=== PATIENT | female | born 1975 | race Caucasian/White ===

== ENCOUNTER 2017-04-27 15:40 | Inpatient (IN) | payer MEDICAID, OTHER ==
[2017-04-27] MEDS ORDERED: ZOFRAN ONE (16:19)
[2017-04-27] MEDS ORDERED: NACL 0.9% 1000 ML 1,000 ML ONE (16:19)
[2017-04-27] MEDS ORDERED: REGLAN ONE (16:59)
[2017-04-27] MEDS ORDERED: NACL 0.9% 1000 ML 1,000 ML IV ONE (17:04)
[2017-04-27] MEDS ORDERED: ZOFRAN IV ONE (17:04)
[2017-04-27] MEDS ORDERED: REGLAN IV ONE (17:04)
[2017-04-27] MEDS ORDERED: ANTIVERT PO ONE (17:30)
--- NOTE | 2017-04-27 17:37 | Emergency Department Report ---
HPI - General Chief Complaint: Nausea/Vomiting/Diarrhea Time Seen by Provider: 04/27/17 17:19 - HPI HPI: Room 26 The patient is a 41-year-old female presented with a chief complaint syncope. The patient has a history of multiple sclerosis and states when she awakens 05: 15 she had intermittent dizziness and nausea without vomiting. Patient did not have a headache. Patient states her dizziness has been intermittent up until appointment 14:301 her symptoms worsen while driving. The patient called her boss who in turn called EMS. Coworkers state when a found the patient in her car she was unconscious and slumped over. When they opened the car door the patient fell out of the car. When the patient initially awake and she resumed nausea and vomiting. Coworker states the patient's entire body seemed tense but she was talking throughout the episode. Patient denies any previous episodes of the same. The patient now complains of feeling nauseous and dizzy Location: [See above] Duration: Intermittent since 05:15 Quality: Dizziness, nausea Severity: Moderate Modifying factors: [see above] Context: [see above] Mode of transportation: [not driving] ED Past Medical Hx - Past Medical History Additional medical history: Multiple sclerosis - Surgical History Hx Cholecystectomy: Yes Additional Surgical History: tonsillectomy, tubal ligation - Family History Family history: no significant - Social History Smoking Status: Never Smoker Substance Use Type: None - Medications Home Medications: Home Medications Medication Instructions Recorded Confirmed Last Taken Type medroxyPROGESTERone ACETATE 05/29/13 05/29/13 05/15/13 History [Depo-Provera (Contraception)] ED Review of Systems ROS: Stated complaint: N/V Other details as noted in HPI Comment: All other systems reviewed and negative Constitutional: denies: chills, fever ENT: denies: ear pain, throat pain Respiratory: denies: cough, shortness of breath, wheezing Cardiovascular: denies: chest pain, palpitations Endocrine: no symptoms reported Gastrointestinal: nausea, vomiting Genitourinary: denies: urgency, dysuria, discharge Musculoskeletal: denies: back pain, joint swelling, arthralgia Skin: denies: rash, lesions Neurological: other (dizziness). denies: headache Psychiatric: denies: anxiety, depression Hematological/Lymphatic: denies: easy bleeding, easy bruising Physical Exam - Physical Exam Vital Signs: Vital Signs 04/27/17 04/27/17 04/27/17 15:55 16:37 17:00 Temperature 97.5 F L Pulse Rate 78 71 87 Respiratory 18 Rate Blood Pressure 117/69 119/69 O2 Sat by Pulse 100 100 98 Oximetry 04/27/17 17:02 Temperature Pulse Rate Respiratory 18 Rate Blood Pressure O2 Sat by Pulse 100 Oximetry Physical Exam: GENERAL: The patient is well-developed well-nourished female lying on stretcher appearing to be in moderate discomfort. [] HEENT: Normocephalic. Atraumatic. Extraocular motions are intact. Patient has moist mucous membranes. No nystagmus NECK: Supple. Trachea midline CHEST/LUNGS: Clear to auscultation. There is no respiratory distress noted. HEART/CARDIOVASCULAR: Regular. There is no tachycardia. There is no gallop rub or murmur. ABDOMEN: Abdomen is soft, nontender. Patient has normal bowel sounds. There is no abdominal distention. SKIN: There is no rash. There is no edema. There is no diaphoresis. NEURO: The patient is awake, alert, and oriented. The patient is cooperative. The patient has no focal neurologic deficits. The patient has normal speech. Cranial nerves II through XII grossly intact, no drift. Moves all extremities well MUSCULOSKELETAL: There is no evidence of acute injury. ED Course Vital Signs 04/27/17 04/27/17 04/27/17 15:55 16:37 17:00 Temperature 97.5 F L Pulse Rate 78 71 87 Respiratory 18 Rate Blood Pressure 117/69 119/69 O2 Sat by Pulse 100 100 98 Oximetry 04/27/17 17:02 Temperature Pulse Rate Respiratory 18 Rate Blood Pressure O2 Sat by Pulse 100 Oximetry - Consultations Consultation #1: 04/27/17 18:26 [facility] called 04/27/17 18:[address] Claudine Yu to admit the patient at [facility] ED Medical Decision Making - Lab Data Result diagrams: 04/27/17 16:03 04/27/17 16:03 Laboratory Tests 04/27/17 04/27/17 04/27/17 16:03 16:03 17:30 WBC 11.0 RBC 4.51 Hgb 15.1 H Hct 43.7 H MCV 97 MCH 34 H MCHC 35 H RDW 12.6 L Plt Count 180 Lymph % (Auto) 23.0 [place] % (Auto) 4.6 Eos % (Auto) 5.4 H Baso % (Auto) 0.8 Lymph # 2.5 [place] # 0.5 Eos # 0.6 H Baso # 0.1 Seg Neutrophils % 66.2 Seg Neutrophils # 7.3 Sodium 142 Potassium 3.2 L Chloride 100.7 Carbon Dioxide 18 L Anion Gap 27 BUN 10 Creatinine 0.7 Estimated GFR > 60 BUN/Creatinine Ratio 14 Glucose 165 H Calcium 9.3 Total Creatine Kinase CK-MB (CK-2) CK-MB (CK-2) Rel Index Troponin T HCG, Qual Urine Color Yellow Urine Turbidity Clear Urine pH 8.0 H Ur Specific [place] 1.011 Urine Protein <15 mg/dl Urine Glucose (UA) Neg Urine Ketones 20 Urine Blood Neg Urine Nitrite Neg Urine Bilirubin Neg Urine Urobilinogen < 2.0 Ur Leukocyte Esterase Neg Urine WBC (Auto) 4.0 Urine RBC (Auto) < 1.0 04/27/17 04/27/17 Unknown Unknown WBC RBC Hgb Hct MCV MCH MCHC RDW Plt Count Lymph % (Auto) [place] % (Auto) Eos % (Auto) Baso % (Auto) Lymph # [place] # Eos # Baso # Seg Neutrophils % Seg Neutrophils # Sodium Potassium Chloride Carbon Dioxide Anion Gap BUN Creatinine Estimated GFR BUN/Creatinine Ratio Glucose Calcium Total Creatine Kinase 75 CK-MB (CK-2) 1.7 CK-MB (CK-2) Rel Index 2.2 Troponin T < 0.010 HCG, Qual Negative Urine Color Urine Turbidity Urine pH Ur Specific [place] Urine Protein Urine Glucose (UA) Urine Ketones Urine Blood Urine Nitrite Urine Bilirubin Urine Urobilinogen Ur Leukocyte Esterase Urine WBC (Auto) Urine RBC (Auto) - EKG Data -: EKG Interpreted by De EKG shows normal: sinus rhythm Rate: normal - EKG Data When compared to previous EKG there are: previous EKG unavailable Interpretation: other (no ischemic changes seen) - Radiology Data Radiology results: report reviewed (CT head), image reviewed (CT head) FINAL REPORT EXAM: CT HEAD/BRAIN WO CON HISTORY: syncope, dizziness, MS TECHNIQUE: CT examination of the head without IV contrast PRIORS: None. FINDINGS: No acute air-fluid level visualized in the included air-filled sinuses. Bone windows demonstrate no acute fracture. The brain is without mass, mass effect, hemorrhage, or acute infarct. There is no extra-axial intracranial bleed, brain bleed, or midline shift. The ventricles and sulci are age-appropriate. IMPRESSION: No acute CVA, intracranial bleed, or brain mass Transcribed By: BAL Dictated By: HANDY DRIVER MD Electronically Authenticated By: HANDY DRIVER MD Signed Date/Time: 04/27/17 1420 - Differential Diagnosis syncope, multiple sclerosis, ACS, ICH, cerebellar lesion Critical care attestation.: If time is entered above; I have spent that time in minutes in the direct care of this critically ill patient, excluding procedure time. ED Disposition Clinical Impression: Syncope Disposition: DC-09 OP ADMIT IP TO THIS HOSP Is pt being admited?: Yes Does the pt Need Aspirin: No Condition: Fair Instructions: Syncope (ED) Referrals: PRIMARY CARE, [Primary Care Provider] - 3-5 Days Time of Disposition: 18:36 (hospitalist paged)
[2017-04-27 17:44] LABS: Basophils % (Auto) 0.8 % (0.0-1.8); Eosinophils % (Auto) 5.4 % (0.0-4.3); Hematocrit 43.7 % (30.3-42.9); Hemoglobin 15.1 gm/dl (10.1-14.3); Mean Corpuscular HGB Conc 35 % (30-34); Mean Corpuscular Hemoglobin 34 pg (28-32); Mean Corpuscular Volume 97 fl (79-97); Platelet Count 180 K/mm3 (140-440); Red Blood Count 4.51 M/mm3 (3.65-5.03); Red Cell Distribution Width 12.6 % (13.2-15.2)
[2017-04-27] MEDS ORDERED: PHENERGAN PR ONE (17:49)
[2017-04-27 17:58] LABS: Bilirubin,Urine NEG (Negative); Blood,Urine NEG (Negative); Ketones,Urine 20 mg/dL (Negative); Leukocyte Esterase,Urine NEG (Negative); Nitrite,Urine NEG (Negative); Protein,Urine <15 mg/dL mg/dL (Negative); RBC,Urine < 1.0 /HPF (0.0-6.0); Urobilinogen,Urine < 2.0 mg/dL (<2.0)
[2017-04-27 18:00] LABS: Anion Gap 27 mmol/L; BUN/Creatinine Ratio 14; Blood Urea Nitrogen 10 mg/dL (7-17); Calcium 9.3 mg/dL (8.4-10.2); Carbon Dioxide 18 mmol/L (22-30); Chloride 100.7 mmol/L (98-107); Glucose 165 mg/dL (65-100); Potassium 3.2 mmol/L (3.6-5.0); Sodium 142 mmol/L (137-145)
[2017-04-27 18:07] LABS: Creatine Kinase 75 units/L (30-135); Creatine Kinase MB 1.7 ng/mL (0.0-4.0)
--- NOTE | 2017-04-27 18:22 | Cat Scan Report ---
FINAL REPORT EXAM: CT HEAD/BRAIN WO CON HISTORY: syncope, dizziness, MS TECHNIQUE: CT examination of the head without IV contrast PRIORS: None. FINDINGS: No acute air-fluid level visualized in the included air-filled sinuses. Bone windows demonstrate no acute fracture. The brain is without mass, mass effect, hemorrhage, or acute infarct. There is no extra-axial intracranial bleed, brain bleed, or midline shift. The ventricles and sulci are age-appropriate. IMPRESSION: No acute CVA, intracranial bleed, or brain mass
--- NOTE | 2017-04-27 18:45 | History and Physical Report ---
History of Present Illness Chief complaint: I just passed out History of present illness: 42 YO Female with MS presents to ED for evaluation. Pt states that she has experienced intermittent nausea and dizziness over the past 3 days. Pt states that symptoms restarted at 0515 hrs upon waking. PT syates that on her drive to work that the symptoms got progressively worse and upon arrival at her job she was feeling even worse and subsequently called her boss. Pt boss subsequently called EMS. Prior to EMS arrival, patient was found in her car unconscious with her head on the steering wheel of her car and when the door was opened the patient fell out of the car but was caught by a coworker before contact was made with the ground. Upon EMS arrival patient was found to be lethargic, with loss of bladder continence. Pt coworker, who is at bedside during exam and interview, states that patient's whole body was shaking, and patient was confused. Pt denies fever, chills, CP, Palpitations, trauma, falls, vertigo, seizure, leg swelling, calf pain, prolonged travel/immobility, individual/ family history of DVT/PE, recent ill contacts, vision changes, or headaches. As per ED, patient had been approved for admission by [place] Past History Past Medical History: other (MS) Past Surgical History: cholecystectomy, tonsillectomy, Other (Tubal ligation) Social history: , lives with family. denies: smoking, alcohol abuse, prescription drug abuse Family history: no significant family history (reviewed) Medications and Allergies Allergies Allergy/AdvReac Type Severity Reaction Status Date / Time latex Allergy Hives Verified 06/06/13 11:41 Home Medications Medication Instructions Recorded Confirmed Last Taken Type No Known Home Medications [No 04/27/17 04/27/17 Unknown History Reported Home Medications] Review of Systems Constitutional: no weight loss, no weight gain, no fever, no chills Ears, nose, mouth and throat: no ear pain, no ear discharge, no tinnitis, no decreased hearing, no nose pain, no nasal congestion, no nasal discharge Breasts: no change in shape, no swelling, no mass Cardiovascular: syncope, no chest pain, no orthopnea, no palpitations, no rapid/ irregular heart beat, no edema, no lightheadedness, no shortness of breath Respiratory: no cough, no cough with sputum, no excessive sputum, no hemoptysis , no shortness of breath Gastrointestinal: nausea, no abdominal pain, no vomiting, no diarrhea, no constipation, no change in bowel habits, no hematemesis, no coffee ground emesis , no melena, no hematochezia, no loss of appetite Genitourinary Female: no pelvic pain, no flank pain, no menorrhagia, no dysuria , no urinary frequency, no urgency Rectal: no pain, no incontinence, no bleeding Musculoskeletal: no neck stiffness, no arm numbness/tingling, no low back pain, no shooting leg pain, no leg numbness/tingling Integumentary: no rash, no pruritis, no redness, no sores, no wounds, no jaundice, no boils Neurological: no head injury, no transient paralysis, no paralysis, no weakness , no parathesias, no numbness, no tingling Psychiatric: no anxiety, no memory loss, no change in sleep habits, no sleep disturbances, no insomnia, no hypersomnia, no change in appetite Endocrine: no cold intolerance, no heat intolerance, no polyphagia, no excessive thirst, no polydipsia, no polyuria Hematologic/Lymphatic: no easy bruising, no easy bleeding Allergic/Immunologic: no urticaria, no allergic rhinitis, no wheezing Exam - Constitutional Vitals: Temp Pulse Resp BP Pulse Ox 97.5 F L 83 18 115/66 98 04/27/17 15:55 04/27/17 18:01 04/27/17 18:01 04/27/17 18:01 04/27/17 18:01 General appearance: Present: mild distress - EENT Eyes: Present: PERRL ENT: hearing intact, clear oral mucosa - Neck Neck: Present: supple, normal ROM - Respiratory Respiratory effort: normal Respiratory: bilateral: CTA - Cardiovascular Heart Sounds: Present: S1 & S2. Absent: rub, click - Extremities Extremities: pulses symmetrical, No edema Peripheral Pulses: within normal limits - Abdominal General gastrointestinal: Present: soft, non-tender, non-distended, normal bowel sounds Female genitourinary: Present: normal - Integumentary Integumentary: Present: clear, warm, dry - Musculoskeletal Musculoskeletal: generalized weakness - Psychiatric Psychiatric: appropriate mood/affect, intact judgment & insight - Neurologic Neurologic: CNII-XII intact, moves all extremities, other (lethargic on exam) Results - Labs CBC & Chem 7: 04/27/17 16:03 04/27/17 16:03 Labs: Abnormal lab results 04/27/17 04/27/17 04/27/17 Range/Units 16:03 16:03 17:30 Hgb 15.1 H (10.1-14.3) gm/dl Hct 43.7 H (30.3-42.9) % MCH 34 H (28-32) pg MCHC 35 H (30-34) % RDW 12.6 L (13.2-15.2) % Eos % (Auto) 5.4 H (0.0-4.3) % Eos # 0.6 H (0.0-0.4) K/mm3 Potassium 3.2 L (3.6-5.0) mmol/L Carbon Dioxide 18 L (22-30) mmol/L Glucose 165 H (65-100) mg/dL Urine pH 8.0 H (5.0-7.0) Assessment and Plan - Patient Problems (1) Unconscious state Current Visit: Yes Status: Acute Plan to address problem: CT Head, neuro checks, [place] [facility] test-negative for vertigo, IVF resuscitation, empiric meclizine, and empiric keppra, (2) Multiple sclerosis Current Visit: Yes Status: Acute Plan to address problem: Supportive care, outpatient neurology F/U. Pt states that she is not taking medication at this time as per her neurologist because she does not have symptoms. Will consider MRI in AM if no improvement in symptoms. (3) Seizure disorder Current Visit: Yes Status: Suspected Plan to address problem: Suspected New Onset Seizure: Empric Keppra, EEG, Neuro checks, monitor for recurrent seizure activity, supportive care, CT head, and will consider MRI Head /Spine depending on symptoms, serial physical exam. (4) DVT prophylaxis Current Visit: Yes Status: Acute Plan to address problem: SCD to BLE while in bed,
[2017-04-27] MEDS ORDERED: PROVENTIL IH PRN (19:08)
[2017-04-27] MEDS ORDERED: ZOFRAN IV PRN (19:08)
[2017-04-27] MEDS ORDERED: TYLENOL PO PRN (19:08)
[2017-04-28] MEDS: KEPPRA PO SCH ×3 (11:36→23:25)
[2017-04-28] MEDS ORDERED: ATIVAN IV PRN (12:32)
[2017-04-28 13:56] LABS: BUN/Creatinine Ratio 16; Blood Urea Nitrogen 11 mg/dL (7-17); Carbon Dioxide 25 mmol/L (22-30); Chloride 103.4 mmol/L (98-107); Glucose 89 mg/dL (65-100); Potassium 3.6 mmol/L (3.6-5.0); Sodium 142 mmol/L (137-145)
[2017-04-28 13:58] LABS: Anion Gap 17 mmol/L
[2017-04-28] MEDS ORDERED: K-DUR PO ONE ×2 (14:00→23:00)
--- NOTE | 2017-04-28 16:18 | Progress Note ---
Assessment and Plan / Syncope vs seizure Suspected New Onset Seizure cont Michael Kevingalileo for, ordered EEG, MRI brain CT head had no acute finding cont Neuro checks, monitor for recurrent seizure activity, supportive care, if no further recurrent episode of seizure d/c tomorrow with out pt follow up if MRI and EEG normal Consulted neurology for further recommendation Discussed with derek, call them with any condition change ([phone]) / h/o Multiple sclerosis Pt states that she is not taking medication at this time as per her neurologist because she does not have symptoms. Supportive care, outpatient neurology F/U. / DVT prophylaxis SCD to b/l LE Brief History: 42 YO Female with h/o MS presents to ED after she was found unconscious in her car. Pt states that she has experienced intermittent nausea and dizziness over the past 3 days. PT states that on her drive to work the symptoms got progressively worse and before arrival at her job she was feeling even worse and subsequently called her boss. Pt boss called EMS. Prior to EMS arrival, patient was found in her car unconscious with her head on the steering wheel of her car and when the door was opened the patient fell out of the car but was caught by a coworker before she fell on the ground. Upon EMS arrival patient was found to be lethargic, with loss of bladder and bowel incontinence. Subjective Date of service: 04/28/17 Interval history: pt seen and examined no further seizure episode since admission tolerating diet, denies any focal deficit discussed with derek and they approved her stay Objective - Constitutional Vitals: Vital Signs - 12hr 04/28/17 04/28/17 04/28/17 07:11 12:36 15:43 Temperature 99.4 F 97.4 F L 99.2 F Pulse Rate 75 72 Respiratory 16 16 16 Rate Blood Pressure 105/58 126/76 111/67 O2 Sat by Pulse 96 96 Oximetry General appearance: Present: no acute distress, well-nourished - EENT Eyes: PERRL, EOM intact ENT: hearing intact, clear oral mucosa Ears: bilateral: normal - Neck Neck: supple, normal ROM - Respiratory Respiratory effort: normal Respiratory: bilateral: CTA - Cardiovascular Rhythm: regular Heart Sounds: Present: S1 & S2. Absent: gallop, rub Extremities: pulses intact, No edema, normal color, Full ROM - Gastrointestinal General gastrointestinal: Present: soft, non-tender, non-distended, normal bowel sounds - Integumentary Integumentary: clear, warm, dry - Musculoskeletal Musculoskeletal: 1, strength equal bilaterally - Neurologic Neurologic: moves all extremities - Psychiatric Psychiatric: memory intact, appropriate mood/affect, intact judgment & insight - Labs CBC & Chem 7: 04/27/17 16:03 04/28/17 12:16 - Imaging and cardiology CT Scan - head: report reviewed
[2017-04-28] MEDS: LOVENOX SUB-Q SCH (23:16)
--- NOTE | 2017-04-29 07:55 | Discharge Summary ---
Providers - Providers Date of Admission: 04/27/17 19:08 Attending physician: SUKUMAR BARRAGAN MD 04/28/17 10:13 Consult to Physician [CONS] Routine Consulting Provider: JONNATHAN MAE Reason For Exam: seizure Place consult to:: neurology Notified:: Phone number called:: [phone] Was contact made?: Yes If yes, spoke with:: Time called:: 16:50 04/28/17 13:18 Physical Therapy Evaluation and Treat [CONS] Routine Comment: Reason For Exam: d/c clearance 04/28/17 16:23 Physical Therapy Evaluation and Treat [CONS] Routine Comment: Reason For Exam: d/c clearance Primary care physician: [facility] DIRECT[facility] Hospitalization Condition: Fair Hospital course: / Syncope vs seizure Suspected New Onset Seizure cont Empric Keppra for, ordered EEG, MRI brain CT head had no acute finding cont Neuro checks, monitor for recurrent seizure activity, supportive care, if no further recurrent episode of seizure d/c tomorrow with out pt follow up if MRI and EEG normal Consulted neurology for further recommendation Discussed with derek, call them with any condition change ([phone]) / h/o Multiple sclerosis Pt states that she is not taking medication at this time as per her neurologist because she does not have symptoms. Supportive care, outpatient neurology F/U. / DVT prophylaxis SCD to b/l LE Brief History: 42 YO Female with h/o MS presents to ED after she was found unconscious in her car. Pt states that she has experienced intermittent nausea and dizziness over the past 3 days. PT states that on her drive to work the symptoms got progressively worse and before arrival at her job she was feeling even worse and subsequently called her boss. Pt boss called EMS. Prior to EMS arrival, patient was found in her car unconscious with her head on the steering wheel of her car and when the door was opened the patient fell out of the car but was caught by a coworker before she fell on the ground. Upon EMS arrival patient was found to be lethargic, with loss of bladder and bowel incontinence. Disposition: - TO HOME OR SELFCARE Time spent for discharge: 33 minutes Core Measure Documentation - Palliative Care Palliative Care/ Comfort Measures: Not Applicable - Core Measures Any of the following diagnoses?: none Exam - Constitutional Vitals: Temp Pulse Resp BP Pulse Ox 97.7 F 62 16 117/58 96 04/29/17 04:17 04/29/17 04:17 04/29/17 04:17 04/29/17 04:17 04/29/17 04:17 General appearance: Present: no acute distress, well-nourished - EENT Eyes: Present: PERRL ENT: hearing intact, clear oral mucosa - Neck Neck: Present: supple, normal ROM - Respiratory Respiratory effort: normal Respiratory: bilateral: CTA - Cardiovascular Heart Sounds: Present: S1 & S2. Absent: rub, click - Extremities Extremities: pulses symmetrical, No edema Peripheral Pulses: within normal limits - Abdominal General gastrointestinal: Present: soft, non-tender, non-distended, normal bowel sounds Female genitourinary: Present: normal - Integumentary Integumentary: Present: clear, warm, dry - Musculoskeletal Musculoskeletal: gait normal, strength equal bilaterally - Psychiatric Psychiatric: appropriate mood/affect, intact judgment & insight - Neurologic Neurologic: CNII-XII intact, moves all extremities Plan Follow up with: PRIMARY CARE, [Primary Care Provider] - 3-5 Days
--- NOTE | 2017-04-29 08:36 | Consultation ---
History of Present Illness - Reason for Consult Consult date: 04/29/17 syncope - History of Present Illness reviewed the hx about syncope rec get EEG plan to review results of imaging with radiology Past History Past Medical History: other (MS) Past Surgical History: cholecystectomy, tonsillectomy, Other (Tubal ligation) Social history: , lives with family. denies: smoking, alcohol abuse, prescription drug abuse Family history: no significant family history (reviewed) Medications and Allergies Allergies Allergy/AdvReac Type Severity Reaction Status Date / Time latex Allergy Hives Verified 06/06/13 11:41 Home Medications Medication Instructions Recorded Confirmed Last Taken Type No Known Home Medications [No 04/27/17 04/27/17 Unknown History Reported Home Medications] Active Meds: Active Medications Acetaminophen (Tylenol) 650 mg PO Q4H PRN PRN Reason: Pain MILD(1-3)/Fever >100.5/BROWN Albuterol (Proventil) 2.5 mg IH Q4HRT PRN PRN Reason: Shortness Of Breath Enoxaparin Sodium (Lovenox) 40 mg SUB-Q QDAY@2200 [facility] Last Admin: 04/28/17 23:16 Dose: 40 mg Levetiracetam (Keppra) 500 mg PO BID [facility] Last Admin: 04/28/17 23:25 Dose: Not Given Lorazepam (Ativan) 1 mg IV Q4H PRN PRN Reason: Seizures Ondansetron HCl (Zofran) 4 mg IV Q8H PRN PRN Reason: N/V unrelieved by Reglan Exam - Constitutional Vitals: Temp Pulse Resp BP Pulse Ox 98.6 F 65 16 105/72 100 04/29/17 07:56 04/29/17 07:56 04/29/17 07:56 04/29/17 07:56 04/29/17 08:24 Results - Labs CBC & Chem 7: 04/27/17 16:03 04/28/17 12:16
--- NOTE | 2017-04-29 08:38 | Consultation ---
History of Present Illness - Reason for Consult Consult date: 04/29/17 ct of head review - History of Present Illness did go over the CT of head and it is normal psot discharge OK to follow up with me for syncope vs seizure EEG pending Past History Past Medical History: other (MS) Past Surgical History: cholecystectomy, tonsillectomy, Other (Tubal ligation) Social history: , lives with family. denies: smoking, alcohol abuse, prescription drug abuse Family history: no significant family history (reviewed) Medications and Allergies Allergies Allergy/AdvReac Type Severity Reaction Status Date / Time latex Allergy Hives Verified 06/06/13 11:41 Home Medications Medication Instructions Recorded Confirmed Last Taken Type No Known Home Medications [No 04/27/17 04/27/17 Unknown History Reported Home Medications] Active Meds: Active Medications Acetaminophen (Tylenol) 650 mg PO Q4H PRN PRN Reason: Pain MILD(1-3)/Fever >100.5/BROWN Albuterol (Proventil) 2.5 mg IH Q4HRT PRN PRN Reason: Shortness Of Breath Enoxaparin Sodium (Lovenox) 40 mg SUB-Q QDAY@2200 [facility] Last Admin: 04/28/17 23:16 Dose: 40 mg Levetiracetam (Keppra) 500 mg PO BID [facility] Last Admin: 04/28/17 23:25 Dose: Not Given Lorazepam (Ativan) 1 mg IV Q4H PRN PRN Reason: Seizures Ondansetron HCl (Zofran) 4 mg IV Q8H PRN PRN Reason: N/V unrelieved by Reglan Exam - Constitutional Vitals: Temp Pulse Resp BP Pulse Ox 98.6 F 65 16 105/72 100 04/29/17 07:56 04/29/17 07:56 04/29/17 07:56 04/29/17 07:56 04/29/17 08:24 Results - Labs CBC & Chem 7: 04/27/17 16:03 04/28/17 12:16
[2017-04-29] MEDS: KEPPRA PO SCH ×2 (10:00→22:45)
--- NOTE | 2017-04-29 16:04 | Magnetic Resonance Report ---
MRI of the brain with and without contrast. History: New onset seizures Procedure: Routine brain protocol with and without contrast. Findings: The posterior fossa is normal. The ventricles are normal in size and contour. There is no restricted diffusion. There are no intra-axial masses or extra-axial collections. After contrast, there is no evidence of abnormal enhancement. The stahl-white matter junction is normal. The cerebellar tonsils are in normal position. The visualized extracranial structures are normal. Impression: Normal study.
[2017-04-29] MEDS: LOVENOX SUB-Q SCH (22:45)
[2017-04-30 08:20] VITALS: BP 110/72
--- NOTE | 2017-04-30 09:55 | Progress Note ---
Assessment and Plan Assessment and plan: / Syncope vs seizure Suspected New Onset Seizure cont Michael Sidhu for, ordered EEG, MRI brain CT head had no acute finding cont Neuro checks, monitor for recurrent seizure activity, supportive care, if no further recurrent episode of seizure d/c tomorrow with out pt follow up if MRI and EEG normal Consulted neurology for further recommendation Discussed with derek, call them with any condition change ([id number]) / h/o Multiple sclerosis Pt states that she is not taking medication at this time as per her neurologist because she does not have symptoms. Supportive care, outpatient neurology F/U. / DVT prophylaxis SCD to b/l LE Brief History: 42 YO Female with h/o MS presents to ED after she was found unconscious in her car. Pt states that she has experienced intermittent nausea and dizziness over the past 3 days. PT states that on her drive to work the symptoms got progressively worse and before arrival at her job she was feeling even worse and subsequently called her boss. Pt boss called EMS. Prior to EMS arrival, patient was found in her car unconscious with her head on the steering wheel of her car and when the door was opened the patient fell out of the car but was caught by a coworker before she fell on the ground. Upon EMS arrival patient was found to be lethargic, with loss of bladder and bowel incontinence. Hospitalist Physical - Constitutional Vitals: Temp Pulse Resp BP Pulse Ox 98.3 F 72 18 110/72 100 04/30/17 08:17 04/30/17 08:17 04/30/17 08:17 04/30/17 08:17 04/30/17 08:17 General appearance: Present: no acute distress, well-nourished Results - Labs CBC & Chem 7: 04/27/17 16:03 04/28/17 12:16 Labs: Laboratory Last Values WBC 11.0 K/mm3 (4.5-11.0) 04/27/17 16:03 RBC 4.51 M/mm3 (3.65-5.03) 04/27/17 16:03 Hgb 15.1 gm/dl (10.1-14.3) H 04/27/17 16:03 Hct 43.7 % (30.3-42.9) H 04/27/17 16:03 MCV 97 fl (79-97) 04/27/17 16:03 MCH 34 pg (28-32) H 04/27/17 16:03 MCHC 35 % (30-34) H 04/27/17 16:03 RDW 12.6 % (13.2-15.2) L 04/27/17 16:03 Plt Count 180 K/mm3 (140-440) 04/27/17 16:03 Lymph % (Auto) 23.0 % (13.4-35.0) 04/27/17 16:03 [place] % (Auto) 4.6 % (0.0-7.3) 04/27/17 16:03 Eos % (Auto) 5.4 % (0.0-4.3) H 04/27/17 16:03 Baso % (Auto) 0.8 % (0.0-1.8) 04/27/17 16:03 Lymph # 2.5 K/mm3 (1.2-5.4) 04/27/17 16:03 [place] # 0.5 K/mm3 (0.0-0.8) 04/27/17 16:03 Eos # 0.6 K/mm3 (0.0-0.4) H 04/27/17 16:03 Baso # 0.1 K/mm3 (0.0-0.1) 04/27/17 16:03 Seg Neutrophils % 66.2 % (40.0-70.0) 04/27/17 16:03 Seg Neutrophils # 7.3 K/mm3 (1.8-7.7) 04/27/17 16:03 Sodium 142 mmol/L (137-145) 04/28/17 12:16 Potassium 3.6 mmol/L (3.6-5.0) 04/28/17 12:16 Chloride 103.4 mmol/L (98-107) 04/28/17 12:16 Carbon Dioxide 25 mmol/L (22-30) D 04/28/17 12:16 Anion Gap 17 mmol/L 04/28/17 12:16 BUN 11 mg/dL (7-17) 04/28/17 12:16 Creatinine 0.7 mg/dL (0.7-1.2) 04/28/17 12:16 Estimated GFR > 60 ml/min 04/28/17 12:16 BUN/Creatinine Ratio 16 % 04/28/17 12:16 Glucose 89 mg/dL (65-100) 04/28/17 12:16 Calcium 9.0 mg/dL (8.4-10.2) 04/28/17 12:16 Total Creatine Kinase 75 units/L (30-135) 04/27/17 Unknown CK-MB (CK-2) 1.7 ng/mL (0.0-4.0) 04/27/17 Unknown CK-MB (CK-2) Rel Index 2.2 (0-4) 04/27/17 Unknown Troponin T < 0.010 ng/mL (0.00-0.029) 04/27/17 Unknown HCG, Qual Negative (Negative) 04/27/17 Unknown Urine Color Yellow (Yellow) 04/27/17 17:30 Urine Turbidity Clear (Clear) 04/27/17 17:30 Urine pH 8.0 (5.0-7.0) H 04/27/17 17:30 Ur Specific [place] 1.011 (1.003-1.030) 04/27/17 17:30 Urine Protein <15 mg/dl mg/dL (Negative) 04/27/17 17:30 Urine Glucose (UA) Neg mg/dL (Negative) 04/27/17 17:30 Urine Ketones 20 mg/dL (Negative) 04/27/17 17:30 Urine Blood Neg (Negative) 04/27/17 17:30 Urine Nitrite Neg (Negative) 04/27/17 17:30 Urine Bilirubin Neg (Negative) 04/27/17 17:30 Urine Urobilinogen < 2.0 mg/dL (<2.0) 04/27/17 17:30 Ur Leukocyte Esterase Neg (Negative) 04/27/17 17:30 Urine WBC (Auto) 4.0 /HPF (0.0-6.0) 04/27/17 17:30 Urine RBC (Auto) < 1.0 /HPF (0.0-6.0) 04/27/17 17:30
== END 2017-04-30 10:25 | disposition home or self-care (01) | DRG 101 ==
LOC: ED 15:40 → 3A 19:08
PROVIDERS: ADMIT Internal Medicine; ATTEND Internal Medicine
DX: G40.909 Epilepsy, unspecified, not intractable, without status epilepticus (principal); R55 Syncope and collapse; G35 Multiple sclerosis; Z98.51 Tubal ligation status; Z90.49 Acquired absence of other specified parts of digestive tract; Z91.040 Latex allergy status
CPT/HCPCS: 36415; 70450; 70553; 80048; 81001; 82550; 82553; 84484; 84703; 85025; 93005; 93010; 96361; 96374; 96375; A9577; J1650; J2405; J2765; J7030